=== PATIENT | male | born 1995 | race Caucasian/White ===

== ENCOUNTER 2018-07-14 05:44 | Day surgery (SDC) | payer OTHER ==
[2018-07-14] MEDS ORDERED: FENTAnyl 50 MCG/ML VIAL ×2 (08:03)
[2018-07-14] MEDS ORDERED: PROPOFOL 20 ML ×2 (08:03)
== END 2018-07-14 10:47 | disposition home or self-care (01) ==
LOC: GIL 05:44
DX: K29.70 Gastritis, unspecified, without bleeding (principal); K52.9 Noninfective gastroenteritis and colitis, unspecified; K64.8 Other hemorrhoids
CPT/HCPCS: 43239; 88305